=== PATIENT | female | born 1990 | race Caucasian/White ===

== ENCOUNTER → 2024-09-25 09:53 | Outpatient (REF) | payer OTHER, SELFPAY | LOC: RCS 09:53 | PROVIDERS: ATTENDING PHYSICIAN Nurse Practitioner Family; FAMILY PHYSICIAN Internal Medicine | DX: R07.89 Other chest pain (principal); Z00.00 Encounter for general adult medical examination without abnormal findings; R59.9 Enlarged lymph nodes, unspecified | CPT/HCPCS: 71046; 93005 ==

== ENCOUNTER → 2024-09-28 14:42 | Outpatient (REF) | payer OTHER, SELFPAY | LOC: HWRAD 14:42 | PROVIDERS: ATTENDING PHYSICIAN Nurse Practitioner Family | DX: Z00.00 Encounter for general adult medical examination without abnormal findings (principal); R59.9 Enlarged lymph nodes, unspecified | CPT/HCPCS: 76536 ==